=== PATIENT | male | born 1965 | race Two or more races ===

== ENCOUNTER 2023-12-25 12:26 | Emergency (ER) | payer OTHER ==
[2023-12-25 12:40] LABS: Glucose,Whole Blood 157 mg/dL (70-110)
[2023-12-25 13:03] VITALS: TEMP 97.8
--- NOTE | 2023-12-25 13:35 | ED ---
Syncope HPI - General Chief Complaint: Weakness Stated Complaint: Dizziness, anxiety Time Seen by Provider: 12/25/23 12:49 Source: patient, RN notes reviewed, old records reviewed, Caregiver Mode of arrival: ambulatory Limitations: no limitations - History of Present Illness Initial Comments: This is a 58-year-old male to the ER today. This patient presents today for evaluation of a syncopal event sent in from orthopedics, patient was at his orthopedics office where he was getting some testing today, the testing was going different his way he was told he needed surgery might need to get an IV and patient passed out in the exam room. Patient is without complaints he is no feelings of near syncope or syncope currently here in the ER. He has no travel history or sick contacts no chest pain shortness of breath abdominal pain no complaints. - Related Data Home Medications Medication Instructions Recorded Confirmed Divalproex ER [Depakote ER] 250 mg PO DAILY 04/15/17 04/15/17 Sertraline HCl [Zoloft] 50 mg PO 04/15/17 Allergies Allergy/AdvReac Type Severity Reaction Status Date / Time No Known Allergies Allergy Verified 12/25/23 12:36 Review of Systems ROS Statement: Those systems with pertinent positive or pertinent negative responses have been documented in the HPI. ROS Other: All systems not noted in ROS Statement are negative. Past Medical History Past Medical History: Diabetes Mellitus History of Any Multi-Drug Resistant Organisms: None Reported Past Surgical History: Back Surgery Additional Past Surgical History / Comment(s): neck Past Psychological History: Anxiety, Depression Smoking Status: Never smoker Past Alcohol Use History: None Reported - Past Family History Mother Family Medical History: Diabetes Mellitus General Exam Limitations: no limitations General appearance: alert, in no apparent distress Head exam: Present: atraumatic, normocephalic, normal inspection Eye exam: Present: normal appearance, PERRL, EOMI. Absent: scleral icterus, conjunctival injection, periorbital swelling ENT exam: Present: normal exam, mucous membranes moist Neck exam: Present: normal inspection. Absent: tenderness, meningismus, lymphadenopathy Respiratory exam: Present: normal lung sounds bilaterally. Absent: respiratory distress, wheezes, rales, rhonchi, stridor Cardiovascular Exam: Present: regular rate, normal rhythm, normal heart sounds. Absent: systolic murmur, diastolic murmur, rubs, gallop, clicks GI/Abdominal exam: Present: soft, normal bowel sounds. Absent: distended, tenderness, guarding, rebound, rigid Extremities exam: Present: normal inspection, full ROM, normal capillary refill. Absent: tenderness, pedal edema, joint swelling, calf tenderness Back exam: Present: normal inspection Neurological exam: Present: alert, oriented X3, CN II-XII intact Psychiatric exam: Present: normal affect, normal mood Skin exam: Present: warm, dry, intact, normal color. Absent: rash Course Vital Signs 12/25/23 12/25/23 12/25/23 12:33 12:36 13:49 Temperature 97.8 F Pulse Rate 65 85 75 Pulse Rate [ 75 Er Nurse ] Respiratory 18 16 16 Rate Blood Pressure 115/80 170/80 122/80 O2 Sat by Pulse 97 98 98 Oximetry - Reevaluation(s) Reevaluation #1: Medical record is reviewed Reevaluation #2: Patient has no recurrent syncope here in the ER feels well Patient passed out while getting IV does not want further evaluation regarding causes of syncope Reevaluation #3: Patient informed of results and questions answered Reevaluation #4: Was pt. sent in by a medical professional or institution (, PA, PARATRANSIT DRIVER, urgent care, hospital, or fpc...) When possible be specific @ -no Did you speak to anyone other than the patient for history (EMS, parent, family, police, friend...)? What history was obtained from this source @ -no Did you review nursing and triage notes (agree or disagree)? Why? @ -agree Are old charts reviewed (outside hosp., previous admission, EMS record, old EKG, old radiological studies, urgent care reports/EKG's, fpc records)? Report findings @ -yes Differential Diagnosis (chest pain, altered mental status, abdominal pain women, abdominal pain men, vaginal bleeding, weakness, fever, dyspnea, syncope, head ache, dizziness, GI bleed, back pain, seizure, CVA, palpatations, mental health, musculoskeletal)? @ -prior EKG interpreted by me (3pts min.). @ -yes X-rays interpreted by me (1pt min.). @ -yes negative for acute disease CT interpreted by me (1pt min.). @ -no U/S interpreted by me (1pt. min.). @ -no What testing was considered but not performed or refused? (CT, X-rays, U/S, labs)? Why? @ -none What meds were considered but not given or refused? Why? @ -none Did you discuss the management of the patient with other professionals (professionals i.e. , PA, PARATRANSIT DRIVER, lab, RT, psych nurse, high school social studies teacher, founder ceo & president, teacher, deputy juvenile officer, case assistant)? Give summary @ -no Was smoking cessation discussed for >3mins.? @ -no Was critical care preformed (if so, how long)? @ -no Were there social determinants of health that impacted care today? How? (Homelessness, low income, unemployed, alcoholism, drug addiction, transportation, low edu. Level, literacy, decrease access to med. care, custodial, rehab)? @ -none Was there de-escalation of care discussed even if they declined (Discuss DNR or withdrawal of care, Hospice)? DNR status @ -no What co-morbidities impacted this encounter? (DM, HTN, Smoking, COPD, CAD, Cancer, CVA, ARF, Chemo, Hep., AIDS, mental health diagnosis, sleep apnea, morbid obesity)? @ -none Was patient admitted / discharged? Hospital course, mention meds given and [place], prescriptions, significant lab abnormalities, going to OR and other pertinent info. @ - 58 male who did present with a syncopal event. No cause of syncope found here in the ER patient feels good for discharge home Undiagnosed new problem with uncertain prognosis? @ -no Drug Therapy requiring intensive monitoring for toxicity (Heparin, Nitro, Insulin, Cardizem)? @ -no Were any procedures done? @ -no Diagnosis/symptom? @ -Syncope Acute, or Chronic, or Acute on Chronic? @ -Acute Uncomplicated (without systemic symptoms) or Complicated (systemic symptoms)? @ -Complicated Side effects of treatment? @ -no Exacerbation, Progression, or Severe Exacerbation? @ -exacerbation Poses a threat to life or bodily function? How? (Chest pain, [place], CA, pneumonia, PE, COPD, DKA, ARF, appy, cholecystitis, CVA, Diverticulitis, Homicidal, Suicidal, threat to staff... and all critical care pts) @ -yes Reevaluation #5: Differential Syncope: Valvular disease, hypertrophic cardiomyopathy, pulmonary embolism, tamponade, tachycardia, bradycardia, CA, hypovolemia, hemorrhage, dissection, anemia, intracranial hemorrhage, seizure, hypoglycemia, carbon monoxide poisoning, this is not meant to be an all-inclusive list. Medical Decision Making - Medical Decision Making 58 male who did present with a syncopal event. No cause of syncope found here in the ER patient feels good for discharge home - Lab Data Lab Results 12/25/23 Range/Units 12:38 POC Glucose (mg/dL) 157 H (70-110) mg/dL POC Glu Doughnut Batter Mixer ID EmeliaBernadette tapia Disposition Clinical Impression: Dehydration, Vasovagal syncope Disposition: HOME SELF-CARE Condition: Good Instructions (If sedation given, give patient instructions): Syncope (ED) Is patient prescribed a controlled substance at d/c from ED?: No Referrals: Renaldo Smith, BATSHEVA [Primary Care Provider] - 1-2 days Time of Disposition: 13:15
[2023-12-25 14:05] VITALS: BP 122/80; PULSE 75; RESP 16
== END 2023-12-25 13:51 | disposition home or self-care (01) ==
LOC: EC 12:26
DX: E86.0 Dehydration (principal); R55 Syncope and collapse; E11.9 Type 2 diabetes mellitus without complications; F32.A Depression, unspecified; F41.9 Anxiety disorder, unspecified; Z79.899 Other long term (current) drug therapy
CPT/HCPCS: 36415; 99285

== ENCOUNTER → 2024-02-18 | Outpatient (CLI) | payer OTHER | END | disposition home or self-care (01) | LOC: LABPAT 10:59 | PROVIDERS: ATTEND Orthopaedic Surgery | DX: Z01.812 Encounter for preprocedural laboratory examination (principal); Z22.322 Carrier or suspected carrier of Methicillin resistant Staphylococcus aureus; M50.20 Other cervical disc displacement, unspecified cervical region; M48.02 Spinal stenosis, cervical region | CPT/HCPCS: 36415; 86850; 86900; 86901; 87070 ==

== ENCOUNTER 2024-02-23 05:37 | Day surgery (SDC) | payer OTHER ==
--- NOTE | 2024-02-22 08:10 | P.HPOR ---
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 I reviewed the patient's clinical syndrome, physical findings, and imaging studies during the appointment today. It is my impression that the patient has a diagnosis of. 1. C3-5 spondylosis wit stenosis 2. C3-4, C4-5 herniated nucleus pulposus 3. Right upper extremity radiculopathy 4. Lumbar spondylosis with stenosis 5. Bilateral lower extremity radiculopathy Spine Surgery Risk Review Mr. Goss is presenting for evaluation of neck and right upper extremity pain, right upper extremity numbness and tingling. It was my pleasure to have seen and examined Mr. Goss. In our visit today we have had a chance to go over subjective complaints, physical examination findings and treatments including the natural course history without intervention and various interventional options. The [facility]: - Images re-reviewed in office today. Impression: 1. Nonspecific straightening normal cervical lordosis consistent with strain in the appropriate clinical circumstance. 2. C2-C3: 1 to 2 mm annular bulge effaces the ventral surface of the thecal sac resulting in moderate bilateral neuroforaminal encroachment and bilateral exiting C3 nerve impingement in conjunction with marginal osteophyte formation. 3. C3-C4: 2 to 3 mm broad-based disc herniation effaces the ventral surface of the thecal sac resulting in severe bilateral neuroforaminal encroachment and bilateral exiting C4 nerve impingement in conjunction with marginal osteophyte formation. Moderate canal stenosis is seen. 4. C4-C5: 4 to 5 mm broad-based disc herniation effaces the ventral surface of the thecal sac resulting in severe right and moderate to severe left neuroforaminal encroachment and bilateral exiting C5 nerve impingement in conjunction with marginal osteophyte formation. Moderate canal stenosis is seen. 5. C5-C6: 2 to 3 mm broad-based disc herniation effaces the ventral surface of the thecal sac without evidence of central canal or limiting foraminal stenosis. 6. Syrinx formation without evidence of Chiari malformation. Consider MRI with intravenous contrast to exclude mass as an etiology. XRay Cervical multiview (Lateral, Flexion, Extension, AP, Oblique) [facility] 12[facility]23: - Images re-reviewed with the patient today. Cervical: Moderate to severe spondylitic and degenerative changes with straightening of the normal lordosis. Multilevel diminished disc height, most pronounced C3-C4. Mild grade 1 anterolisthesis C6 on to C7, C5 and C6. Mild grade 1 retrolisthesis C4 and C5. Vertebral body heights are preserved. No subluxation between flexion and extension films. No acute osseous abnormalities. On physical exam, Mr. Goss demonstrates: A continued ache-like pain throughout the neck that radiates down into the right upper extremity wit a sharp, shooting quality. He notes his right arm pain is associated with numbness and tingling. He states his neck and upper extremity symptoms worsen after extended use of the arms or with any quick movements of the neck. He notes that prolonged activity produces an intense, throbbing pain throughout the posterior aspect of the neck. The patient reports experiencing severe sleep disturbances r elated to his ongoing pain and associated symptoms. I have explained to the patient that as their condition progresses it will cause further neurological deficits and eventual paralysis. Based on the patients imaging, physical exam, and the rapid progression and disabling nature of their symptoms, at this time I recommend surgery in the form of a: C3-5 ANTERIOR CERVICAL DISCECOMTY AND FUSION. I discussed the risk and benefits of this procedure at length with Mr. Goss. The patient agreed to considered pursuing the procedure above mentioned. Prior to surgery, she should follow up with her PCP (Cardio, ID, IM etc) for clearance. Questions were invited and answered, and the patient wishes to proceed as outlined below. Currently, I am recommendin.C3-5 ANTERIOR CERVICAL DISCECOMTY AND FUSION 2.Review of surgical risks and benefits as well as an educational packet on the proposed surgical procedure. Risks: All surgical procedures come with inherent risks, including those related to positioning, anesthesia, intraoperative findings, and postoperative complications. It is important to understand that surgery does not come with any guarantee of a successful outcome as complications and adverse events are always possible. The patient was given a handout in office today discussing the surgical procedure and risks associated with the intervention, both of which were discussed with the patient. These risks include but are not limited to the following: * Experiencing same, different or even worse symptoms in back, neck, arms, or legs compared to before surgery. Requiring further surgery or other forms of treatment presently or at some time in the future at same or other levels of the intended spine surgery. On an extreme but fortunately relatively rare basis severe complication such as blindness, stroke, heart attack, temporary and/or permanent nerve injury, paralysis, coma, or may occur, sometimes without known explanation. Surgical complications may include but are not limited to risk of infection, fluid accumulation in the surgical dissection site, including a seroma or hematoma, that requires additional surgery, wound drainage, bleeding, new numbness or weakness, vision changes/loss, spinal fluid leakage, non-healing and/or infected incision, headaches, difficulty or inability to swallow, hoarseness, hemopneumothorax, pneumothorax, impotence, retrograde ejaculation, vaginal dryness; injury to nerves, spinal cord, blood vessels, lymphatics or other vital organs (i.e., bowel injury, injury to the great vessels); heterotopic bone formation; complications related to the hardware such as screws, rods, cages including misplaced hardware, device failure, instrumentation at the wrong spine level, hardware fracture/breakage, or hardware loosening; vertebral failure of the spinal column above or below the newly placed hardware; retained surgical instrumentations or devices and the need for further surgery. * Medical risks of the planned spine surgery include but are not limited to generalized Infections to the whole body or local areas outside of the surgical site (sepsis), heart attack, bleeding, anaphylaxis, meningitis, seizure, epilepsy, hearing loss, burn dyson, laceration of the head or other areas of the body, bruising, hypersensitivity of the skin, bladder over distension; allergic reaction; shoulder injury related to positioning; fat, blood and air clots to other areas of the body like heart, lungs, brain; failure of internal organs such as lungs, kidneys, liver and excessive bleeding. If blood transfusions are necessary, note that transfusions may cause intolerance reactions such as anaphylaxis or other complex reactions. Despite best efforts, the results of spine surgery might not heal in terms of bone, soft tissues such as skin, fascia, ligaments, and joints. Additionally, in order to achieve best possible results, spine surgery may be carried out beyond the initially planned levels and involve decompression, fusion including insertion of hardware at levels other than the original intended area of surgical interest change some portions of the procedure in order to ensure the best possible outcomes. With spine surgery and spinal fusion, there are different off label uses of instrumentation (devices, implants and hardware) as well as biological substances (bone morphogenic proteins, demineralized bone matrix) as well as using extra bone from allograft sources (i.e. cadaver bone) or autograft (iliac crest bone, ribs, or the spine itself). The patient has been given information about these practices and their inherent risks and benefits. [facility] is an educational center that serves as a training facility for neurosurgical and orthopedic [employer] and Nursing students. Physician assistants are medically trained surgical providers who function in the outpatient, inpatient, and operating room setting under the direct supervision of the attending surgeon. [facility] has multiple operating rooms with single and overlapping rooms running daily. They currently function under the required guidelines as produced by the [facility] Finance Committee with regards to the overlapping rooms and will continue to comply with changes to this policy as they occur. The requirements include and are complied with as follows: (1) the critical portions of the overlapping rooms will not occur at the same time, (2) the attending physician will be physically present during the critical portions of the procedure and immediately available during the entire case, and (3) a back-up attending is designated should the primary attending not be immediately available. The patient has had a chance to review all the listed information, has been given print outs detailing this information, and has had all his/her questions answered to their satisfaction. It was my pleasure to have seen and examined Mr. Goss. In our visit today we have had a chance to go over my understanding of our patient's current condition, the natural course history without intervention and various interventional options. Questions were invited and answered, and the patient wishes to proceed as outlined above. I have seen and examined the patient for 25 minutes and we have spent more than 50% of the time in repeat and detailed counseling about the patient's condition, its natural course history with out and as much as can be predicted with surgery and re-review of various surgical treatment options. In conclusion, Mr. Goss requested we proceed with the above suggested surgery and are willing to accept risks and limitations of the suggested surgery as nature of the disease process and our best attempts at treatment for the condition. Thank you again for allowing us to be part of your patient's care. Please don't hesitate to contact me if you have any further questions. FOLLOW UP: Post Procedure PATIENT EDUCATION: Medications Reviewed: YES In our visit today Mr. Goss and I have had a chance to go over my understanding of the patient's current condition, the natural course history without intervention and various interventional options. Questions were invited and answered, and the patient wishes to proceed as outlined above. I will be sure to keep you updated after Mr. Goss returns here for further follow-up. Thank you again for your referral. Please do not hesitate to contact me if you have any further questions. Signed and authenticated by: Chaz Avila [facility] [address] [place] [id number] This message is confidential, intended only for the named recipient(s) and may contain information that is privileged or exempt from disclosure under ap plicable law. If you are not the intended recipient(s), you are notified that the dissemination, distribution or copying of this information is strictly prohibited. If you received this message in error, please notify the sender then delete this message. 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, chronic low back pain History of Any Multi-Drug Resistant Organisms: None Reported Past Surgical History: Back Surgery, Tonsillectomy Additional Past Surgical History / Comment(s): laminectomy/discectomy lumbar, epidural pain procedures Past Anesthesia/Blood Transfusion Reactions: No Reported Reaction Smoking Status: Never smoker - Past Family History Mother Family Medical History: Diabetes Mellitus Medications and Allergies Home Medications Medication Instructions Recorded Confirmed Type Sertraline HCl [Zoloft] 25 mg PO DAILY 04/15/17 02/19/24 History Alogliptin Benzoate [Alogliptin] 25 mg PO DAILY 02/19/24 02/19/24 History Aspirin 81 mg PO DAILY 02/19/24 02/19/24 History Cyclobenzaprine [Flexeril] 10 mg PO BID PRN 02/19/24 02/19/24 History Diclofenac Sodium Gel [Voltaren 1% 2 gm TOPICAL BID PRN 02/19/24 02/19/24 History Gel] Empagliflozin [Jardiance] 25 mg PO DAILY 02/19/24 02/19/24 History Gabapentin [Neurontin] 100 mg PO TID 02/19/24 02/19/24 History Tamsulosin HCl [Flomax] 0.4 mg PO DAILY 02/19/24 02/19/24 History glipiZIDE [Glucotrol] 10 mg PO AC-BID 02/19/24 02/19/24 History lisinopriL [Zestril] 10 mg PO DAILY 02/19/24 02/19/24 History Allergies Allergy/AdvReac Type Severity Reaction Status Date / Time No Known Allergies Allergy Verified 02/18/24 15:43 Physical Examination Osteopathic Statement: *. No significant issues noted on an osteopathic structural exam other than those noted in the History and Physical/Consult.
[~2024-02-23 05:37] MED LIST: GABAPENTIN 300 MG CAP PO PRN; TRANEXAMIC 1,000 MG/100ML-NACL 1,000 MG in SALINE 1 100ML.BAG IVPB PRN
[2024-02-23] MEDS: ACETAMINOPHEN TAB 500 MG TAB PO PRN (06:52)
[2024-02-23] MEDS: LACTATED RINGERS 1,000 ML IV SCH (06:56)
[2024-02-23] MEDS: ONDANSETRON 4 MG/2 ML VIAL IVP PRN (06:58)
[2024-02-23] MEDS ORDERED: MIDAZOLAM 2 MG/2 ML VIAL IV PRN (07:00)
[2024-02-23 07:06] LABS: Glucose,Whole Blood 138 mg/dL (70-110)
[2024-02-23] MEDS ORDERED: LIDOCAINE 1% INJ 10MG/ML (20 ML MDV) ONE (07:25)
[2024-02-23] MEDS ORDERED: KETAMINE HCL IN 0.9 % NACL 50 MG/5 ML SYRINGE ONE (07:25)
[2024-02-23] MEDS ORDERED: fentaNYL (PF) 50 MCG/ML 2 ML AMP ONE (07:25)
[2024-02-23] MEDS ORDERED: ePHEDrine 50 MG/ML 1 ML VIAL ONE (07:25)
[2024-02-23] MEDS ORDERED: ROCURONIUM 10 MG/ML (5 ML VIAL) IV ONE (07:25)
[2024-02-23] MEDS ORDERED: GLYCOPYRROLATE 0.2 MG/ML 2 ML VIAL ONE (07:25)
[2024-02-23] MEDS ORDERED: TRANEXAMIC 1,000 MG/100ML-NACL PREMIX BAG ONE (07:25)
[2024-02-23] MEDS ORDERED: NEOSTIGMINE 1 MG/ML 10 ML VIAL ONE (07:25)
[2024-02-23] MEDS ORDERED: MIDAZOLAM 2 MG/2 ML VIAL ONE (07:25)
[2024-02-23] MEDS ORDERED: PROPOFOL 10 MG/ML 20 ML VIAL IV ONE (07:25)
[2024-02-23] MEDS ORDERED: SUCCINYLCHOLINE CHLORIDE 200 MG/10 ML VIAL IV ONE (07:25)
[2024-02-23] MEDS: THROMBIN (BOVINE) 5,000 UNIT VIAL TOPICAL ONE (08:30)
--- NOTE | 2024-02-23 10:06 | P.OP ---
Date of Procedure: 02/23/24 Preoperative Diagnosis: 1. C3-5 SPONDYLOSIS, SEVERE WITH STENOSIS 2. UE RADICULOPATHY 3. UE WEAKNESS 4. NECK PAIN Postoperative Diagnosis: 1. C3-5 SPONDYLOSIS, SEVERE WITH STENOSIS 2. UE RADICULOPATHY 3. UE WEAKNESS 4. NECK PAIN Procedure(s) Performed: 1. C3-4 ANTERIOR CERVICAL ARTHRODESIS 2. C4-5 ANTERIOR CERVICAL ARTHRODESIS 3. C3-5 ANTERIOR INSTRUMENTATION 4. C3-4 AND C4-5 INSERTION BIOMECHANICAL DEVICE x2 IONM USE OF IO MICROSCOPE Implants: 4 LANG 8MM 7 DEG 9MM 7 DEG MAGNATOS, AUTOGRAFT Anesthesia: GETA Surgeon: Chaz Hayes Therapist Radiation #1: Rm Whalen (WAS PRESENT AND ASSISTED WITH ALL ASPECTS OF THE CASE FROM POSITION TO CLOSURE) Estimated Blood Loss (ml): 25 IV fluids (ml): 1,000 Urine output (ml): 0 Pathology: none sent Condition: stable Disposition: PACU Indications for Procedure: Mr. Goss is presenting for evaluation of neck and right upper extremity pain, right upper extremity numbness and tingling. It was my pleasure to have seen and examined Mr. Goss. In our visit today we have had a chance to go over subjective complaints, physical examination findings and treatments including the natural course history without intervention and various interventional options. The patients imaging demonstrates[facility]: - Images re-reviewed in office today. Impression: 1. Nonspecific straightening normal cervical lordosis consistent with strain in the appropriate clinical circumstance. 2. C2-C3: 1 to 2 mm annular bulge effaces the ventral surface of the thecal sac resulting in moderate bilateral neuroforaminal encroachment and bilateral exiting C3 nerve impingement in conjunction with marginal osteophyte formation. 3. C3-C4: 2 to 3 mm broad-based disc herniation effaces the ventral surface of the thecal sac resulting in severe bilateral neuroforaminal encroachment and bilateral exiting C4 nerve impingement in conjunction with marginal osteophyte formation. Moderate canal stenosis is seen. 4. C4-C5: 4 to 5 mm broad-based disc herniation effaces the ventral surface of the thecal sac resulting in severe right and moderate to severe left neuroforaminal encroachment and bilateral exiting C5 nerve impingement in conjunction with marginal osteophyte formation. Moderate canal stenosis is seen. 5. C5-C6: 2 to 3 mm broad-based disc herniation effaces the ventral surface of the thecal sac without evidence of central canal or limiting foraminal stenosis. 6. Syrinx formation without evidence of Chiari malformation. Consider MRI with intravenous contrast to exclude mass as an etiology. XRay Cervical multiview (Lateral, Flexion, Extension, AP, Oblique) 6 [facility]aken at [facility] on 12/25/23: - Images re-reviewed with the patient today. Cervical: Moderate to severe spondylitic and degenerative changes with straightening of the normal lordosis. Multilevel diminished disc height, most pronounced C3-C4. Mild grade 1 anterolisthesis C6 on to C7, C5 and C6. Mild grade 1 retrolisthesis C4 and C5. Vertebral body heights are preserved. No subluxation between flexion and extension films. No acute osseous abnormalities. On physical exam, Mr. Goss demonstrates: A continued ache-like pain throughout the neck that radiates down into the right upper extremity wit a sharp, shooting quality. He notes his right arm pain is associated with numbness and tingling. He states his neck and upper extremity symptoms worsen after extended use of the arms or with any quick movements of the neck. He notes that prolonged activity produces an intense, throbbing pain throughout the posterior aspect of the neck. The patient reports experiencing severe sleep disturbances related to his ongoing pain and associated symptoms. I have explained to the patient that as their condition progresses it will cause further neurological deficits and eventual paralysis. Based on the patients imaging, physical exam, and the rapid progression and disabling nature of their symptoms, at this time I recommend surgery in the form of a: C3-5 ANTERIOR CERVICAL DISCECOMTY AND FUSION. I discussed the risk and benefits of this procedure at length with Mr. Goss. The patient agreed to considered pursuing the procedure above mentioned. Prior to surgery, she should follow up with her PCP (Cardio, ID, IM etc) for clearance. Questions were invited and answered, and the patient wishes to proceed as outlined below. Currently, I am recommendin.C3-5 ANTERIOR CERVICAL DISCECOMTY AND FUSION Description of Procedure: C3-5 ACDF The patient was seen and examined in the preoperative area. All preoperative protocols were followed. Informed consent was obtained risks and benefits of the procedure were discussed at length. Risks including bleeding infection damage to the surrounding tissue and risk of reoperation were discussed with the patient. Risk of anesthesia up to and including was a discussed with the patient. These are outlined in the risk review. They were willing to accept these risks and all the risks of surgery. The patient was given a weight-based dose of antibiotics in the form of 2 g Ancef. The patient was seen and evaluated by the anesthesia team who deemed them fit for surgery. The site was marked, the patient was willing to proceed with the procedure. The patient was transferred to the operative suite by the Department of anesthesia. They were then drifted off to sleep by the department anesthesia and GETA was performed. The patient tolerated this well. Angel catheter was placed by nursing staff, a-traumatically. Once confirmation of lines and ventilation the patient was transferred to a Supine Power table very carefully. All bony prominences including wrists, elbows, axilla, chest, hips, and thighs, and feet were padded very well. Special attention was paid to the genitalia, and these were padded accordingly. SCDs were placed on bilateral lower extremities and were connected. Arms were well padded and placed at their side thumbs up. Once in position, again we confirmed good ventilation capabilities and that lines were running appropriately. The patients Cervical spine was then exposed. 1010s were placed outlining the incision site. Standard alcohol was used to clean the incision site and allowed to dry. C-arm was used to bio-mariya the patient and confirm level for incision which was marked with a skin marker. Operative briefing was performed with all teams and everyone in agreement to proceed. The patient was then prepped and draped in a normal sterile fashion. Timeout was then performed, and all parties agreed with the procedure to be performed. Transverse skin incision was then made on the right side of the patients neck 3 cm and dissection taken down to the platysma which was split transversely. Sub platysma flap was made, and interval identified between SCM and medial structures. Omohyoid was visualized and protected. Blunt dissection taken down to the anterior cervical facia which was identified. Blunt prob was then placed and lateral image taken which confirmed levels for operation. These levels were then marked with a bovi. Subperiosteal dissection of the longissimus muscles were then done over these levels identifying uncovertebral joints bilaterally. Retractor was then placed deep to these muscles and held in place with a bed arm. Radisson pins were placed into C3 and C4 and gentle distraction taken out over the levels. Jenniffer rongure used to remove disc material. Operating microscope brought in for visualization. Complete discectomy performed at this level with curette, rongure and pituitary. High speed radha used to remove osteophytes anteriorly and posteriorly until PLL was identified. There were large osteophytes posteriorly which were removed and released extensively. 6-0 up curette then used to identify the canal and resect the PLL. 2-0 and 3-0 Kerrison used then to remove PLL and disc herniation and performed b/l foraminotomies. Once good decompression accomplished, meticulous hemostasis was performed. Sizers were then placed under lateral fluoroscopy until the desired height and lordosis. Cage was then selected, packed with autograft and allograft and placed under lateral imaging. Once in good position it was tested and stable. Motors run before and after cage placement were stable. The wound was irrigated, and autograft placed lateral to the cage anteriorly for fusion. Radisson pin was then removed from C3 and placed into C5 and bone wax placed in their void. Gentle distraction taken out over C4-5 now. Complete discectomy done at C4-5 as described including decompression, b/l foraminotomies and PLL resection. Burring of endplates was minimal, osteophytes removed as described. Spacers were then sized and placed under lateral imaging. Cage selected, packed with graft and placed under lateral images. Once in position, meticulous hemostasis performed, and motors remained stable before and after cage placement. AP image confirmed good placement of cages. Wound was irrigated. We then proceeded with anterior instrumentation and screw placement. Awl and drill were done under lateral imaging of C3, 4 and 5 and screws measured and placed with good purchase. All locking mechanisms set, and all screws had good purchase. Final AP and lateral images taken confirmed good placement of hardware and good reduction and mormonism of height. The wound was then irrigated copiously with NSS. Surgicel placed deep in the wound. A deep drain placed out a separate incision and sewed into place. Layered closure then performed with 3-0 Vicryl in the platysma and sub-Q tissue. 2-0 Nylon placed in the skin The wound was then cleaned, and dried and skin glue placed. Once glue dried an Opifoam was placed. The patient was then transferred back to their hospital bed a-traumatically. The drain continued to hold suction. They were placed in a soft collar. They were then awakened by the department of anesthesia having tolerated the proce dure well without complications.
[2024-02-23] MEDS ORDERED: SENNOSIDES-DOCUSATE SODIUM 1 EACH TAB PO PRN (10:16)
[2024-02-23] MEDS ORDERED: HYDROmorphone 1 MG/ML 1 ML SYRINGE IVP PRN (10:16)
[2024-02-23] MEDS ORDERED: HYDROcodone/APAP 5-325MG 1 EACH TAB PO PRN (10:16)
[2024-02-23] MEDS ORDERED: MAGNESIUM HYDROXIDE 2,400 MG/30 ML CUP PO PRN (10:16)
[2024-02-23] MEDS ORDERED: HYDROmorphone 0.5 MG/0.5 ML SYRINGE IVP PRN (10:16)
[2024-02-23] MEDS ORDERED: CYCLOBENZAPRINE 10 MG TAB PO PRN (10:16)
[2024-02-23] MEDS: HYDROmorphone 0.5 MG/0.5 ML SYRINGE IVP PRN (10:25)
[2024-02-23 11:16] LABS: Glucose,Whole Blood 150 mg/dL (70-110)
--- NOTE | 2024-02-23 11:36 | FL ---
EXAMINATION TYPE: FL guidance operating room, XR cervical spine limited Intraoperative/procedural flu oroscopic services were provided. Total fluoroscopy time is 27 seconds with a total of 4 submitted im ages to PACS. Please see the operative/procedural note for further details. DAP: 1.0011 Gycm2
[2024-02-23] MEDS: ACETAMINOPHEN TAB 325 MG TAB PO SCH (12:18)
[2024-02-23] MEDS: HYDROcodone/APAP 10-325MG 1 EACH TAB PO PRN (13:01)
[2024-02-23] MEDS: GABAPENTIN 300 MG CAP PO SCH (15:16)
[2024-02-23 16:51] LABS: Glucose,Whole Blood 138 mg/dL (70-110)
[2024-02-23] MEDS ORDERED: DEXTROSE 50% SYRINGE 50 ML IVP PRN ×2 (17:02)
[2024-02-23] MEDS: INSULIN ASPART (NovoLOG) 100 UNIT/ML VIAL SQ SCH (17:06)
--- NOTE | 2024-02-23 17:41 | P.CONS ---
History of Present Illness - Reason for Consult Consult date: 02/23/24 Requesting physician: Chaz Hayes - Chief Complaint Medical Management - History of Present Illness History of Presenting Illness: Patient is a very pleasant 58-year-old male with a past medical history of hypertension, hyperlipidemia, BPH, diabetes mellitus, cervical spondylosis with upper extremity radiculopathy, bilateral lower extremity neuropathy, and chronic back pain. He is currently admitted under orthospine surgery team status post c ervical arthrodesis with insertion of biomechanical cage. We were consulted for medical management throughout hospitalization. Patient seen and fully evaluated at bedside. Patient reports having a difficult time urinating stating only able to dribble at this time also reporting pain to right lateral tongue and has small wound in which he reports biting his tongue while under anesthesia. No active bleeding or swelling noted. Hard c-collar in place with postoperative dressing and FAWAD drain. Patient reports controlled postoperative pain at this time. Denies any difficulty swallowing or expe riencing any postoperative nausea or vomiting. Patient denies having any other complaints at this time. Review of systems: Pertinent positives and negatives as discussed in HPI, a complete review of systems was performed and all other systems are negative. Physical exam: Vital signs reviewed and stable. General: Nontoxic, no distress and appears stated age. Derm: Skin warm and dry, normal coloration for ethnicity. Head: Atraumatic, normocephalic and symmetric. Hard c-collar, postsurgical dressing, and FAWAD drain in place. Eyes: EOMs intact, no lid lag, and anicteric sclera Mouth: no lip lesions, mucus membranes moist. Patient has small sore on right lateral tongue stating he bit his tongue while under anesthesia. Cardiovascular: regular rate and rhythm with normal S1S2, no murmur, positive posterior tibial pulses bilaterally, and cap refill < 2 seconds. Lungs: Respirations even, regular, and unlabored on room air. Lungs CTA bilaterally, no rhonchi, no rales, no wheezing, and no accessory muscle usage. Abdominal: soft, nontender to palpation, no guarding, no appreciable o rganomegaly Ext: ROM intact. No gross muscle atrophy, no edema, no contractures Neuro: Speech clear, face symmetrical and CN II-XII grossly intact with no noted focal neuro deficits Psych: Alert and oriented to person, place, time, and situation. Appropriate and pleasant affect. Assessment and Plan of Care: Postoperative urinary retention -Patient having difficult time urinating. -Order placed for bladder management and bladder scans to monitor for urinary retention and postvoid residual. -Resume Flomax 0.4 mg daily. Status post cervical arthrodesis with biomechanical cage placement -Management per primary admitting orthospine surgery team including DVT prophylaxis, wound/dressing/drain management, pain management, and PT/OT. -DVT prophylaxis currently with NIKOS tellez and SCDs. Hypertension -Continue daily medication regimen with lisinopril 10 mg daily. Diabetes mellitus -Hold glipizide, Jardiance, and alogliptin and placed patient on glycemic protocol with NovoLog sliding scale. Data reviewed: -Vital signs reviewed. Blood pressure 149/84, heart rate 91, respiratory rate 16, temp 97.9 F, and SpO2 of 98% on 2 L. Thank you for allowing us to participate in the care of this pleasant patient. Do not hesitate to contact us with questions. Someone can be reached from the [facility] group all hours of the day at [phone] or via [employer]. Patient was seen independently by Nurse Practitioner. This document was prepared using Sococ[employer] dictation software. Please allow for errors in beverage inspection machine tender while rare they do occur. Clarence Ferraro NP rendered care for this patient independently, reviewed the findings and plan as documented in the note above. I did not physically speak with or examine the patient on this date. Past Medical History Past Medical History: Diabetes Mellitus, Hypertension, Musculoskeletal Disorder, Osteoarthritis (OA), Sleep Apnea/CPAP/BIPAP Additional Past Medical History / Comment(s): CPAP machine recalled, doesn't have another machine yet, neuropathy feet, CTS in both hands, chronic low back pain History of Any Multi-Drug Resistant Organisms: None Reported Past Surgical History: Back Surgery, Tonsillectomy Additional Past Surgical History / Comment(s): laminectomy/discectomy lumbar, epidural pain procedures, cervical fusion 02/23/24 Past Anesthesia/Blood Transfusion Reactions: No Reported Reaction Past Psychological History: Anxiety, Depression Additional Psychological History / Comment(s): very anxious about this surgery Smoking Status: Never smoker Past Alcohol Use History: None Reported Past Drug Use History: None Reported - Past Family History Mother Family Medical History: Diabetes Mellitus Medications and Allergies Home Medications Medication Instructions Recorded Confirmed Type Sertraline HCl [Zoloft] 25 mg PO DAILY 04/15/17 02/23/24 History Alogliptin Benzoate [Alogliptin] 25 mg PO DAILY 02/19/24 02/23/24 History Aspirin 81 mg PO DAILY 02/19/24 02/23/24 History Cyclobenzaprine [Flexeril] 10 mg PO BID PRN 02/19/24 02/23/24 History Diclofenac Sodium Gel [Voltaren 1% 2 gm TOPICAL BID PRN 02/19/24 02/23/24 History Gel] Empagliflozin [Jardiance] 25 mg PO DAILY 02/19/24 02/23/24 History Gabapentin [Neurontin] 100 mg PO TID 02/19/24 02/23/24 History Tamsulosin HCl [Flomax] 0.4 mg PO DAILY 02/19/24 02/23/24 History glipiZIDE [Glucotrol] 10 mg PO AC-BID 02/19/24 02/23/24 History lisinopriL [Zestril] 10 mg PO DAILY 02/19/24 02/23/24 History Cyclobenzaprine [Flexeril] 10 mg PO BID PRN #40 tab 02/24/24 Rx HYDROcodone/APAP 10-325MG [[place] 1 tab PO Q4-6H PRN #42 tab 02/24/24 Rx 10-325] Sennosides/Docusate Sodium [Senna 1 each PO DAILY PRN #20 capsule 02/24/24 Rx Plus 8.6-50 mg Softgel] cefaDROXiL [Duricef] 500 mg PO Q12HR #10 cap 02/24/24 Rx Allergies Allergy/AdvReac Type Severity Reaction Status Date / Time No Known Allergies Allergy Verified 02/23/24 06:26 Physical Exam Osteopathic Statement: *. No significant issues noted on an osteopathic structural exam other than those noted in the History and Physical/Consult. Vitals: Vital Signs Temp Pulse Pulse Resp BP Pulse Ox 02/23/24 13:30 91 16 149/84 98 02/23/24 13:15 83 16 158/96 98 02/23/24 13:00 82 16 141/87 98 02/23/24 12:43 97.9 F 80 16 141/87 98 02/23/24 12:15 79 16 148/76 99 02/23/24 12:00 86 16 150/86 99 02/23/24 11:30 61 16 154/73 97 02/23/24 11:15 61 16 151/78 98 02/23/24 11:00 64 16 154/86 99 02/23/24 10:45 67 16 150/81 99 02/23/24 10:30 66 14 153/83 100 02/23/24 10:15 68 16 134/79 100 02/23/24 10:08 97.0 F L 71 16 143/74 99 02/23/24 06:38 98.2 F 82 18 145/81 97 Intake and Output 02/23/24 02/23/24 02/23/24 06:59 14:59 22:59 Intake Total 200 1600 Output Total 25 10 Balance 200 1575 -10 Intake: IV 200 1600 Output: Drainage 10 Right Neck 10 Estimated Blood Loss 25 Other: Weight 105 kg 105 kg Results CBC & Chem 7: 02/24/24 06:33 02/24/24 06:33 Labs: Abnormal Lab Results - Last 24 Hours (Table) 02/23/24 02/23/24 02/23/24 Range/Units 06:52 11:14 16:50 POC Glucose (mg/dL) 138 H 150 H 138 H (70-110) mg/dL
--- NOTE | 2024-02-23 18:00 | CT ---
EXAMINATION TYPE: CT cervical spine wo con CT DLP: 701.4 mGycm, Automated exposure control for dose reduction was used. DATE OF EXAM: 02/23/2024 5:48 PM COMPARISON: 02/23/2024 12/25/2023 09/08/2023. CLINICAL INDICATION:Male, 58 years old with history of s/p C3-C5 ACDF; PHH, post op cspine TECHNIQUE: Axial CT images from the skull base to the inferior aspect of T2 we obtained without intra venous contrast. Coronal and sagittal reformatted images were also reviewed. Contrast used: mL of , (if blank None) Oral contrast used: (if blank None) FINDINGS: Fracture: None. Osseous structures: Status post anterior fixation at C3-C4 and C4-C5. Hardware appears intact. Postsu rgical lucencies in the surgical bed aren't present. No evidence for acute fracture. Multilevel degen eration changes throughout the remainder the spine with facet and uncovertebral joint arthropathy and osteophyte formation. Vertebral alignment: Alignment within normal limits. Spinal canal/Neural Foramina: No evidence of significant spinal canal narrowing. No evidence for sign ificant neural foraminal stenosis. Neck soft tissues: Prevertebral soft tissues are within normal limits. Lucencies in the surgical bed with drainage catheter in appropriate position. Other: The airway is patent. The lung apices are clear. IMPRESSION: Post surgical changes to C3-C4 and C4-C5 without evidence for immediate postop complication.
[2024-02-23 20:36] LABS: Glucose,Whole Blood 153 mg/dL (70-110)
[2024-02-23] MEDS: BENZOCAINE 20 % GEL 11.9 GM TUBE MM PRN (21:07)
[2024-02-23] MEDS: SENNOSIDES-DOCUSATE SODIUM 1 EACH TAB PO SCH (21:07)
[2024-02-24 05:47] LABS: Glucose,Whole Blood 157 mg/dL (70-110)
--- NOTE | 2024-02-24 07:17 | P.PN ---
Subjective Progress Note Date: 02/24/24 Principal diagnosis: 1. C3-5 spondylosis wit stenosis 2. C3-4, C4-5 herniated nucleus pulposus 3. Right upper extremity radiculopathy 4. Lumbar spondylosis with stenosis 5. Bilateral lower extremity radiculopathy Patient seen and examined this morning. Patient was resting currently in bed. He states his pain has been managed on current regimen. Surgical incision to the anterior cervical spine, edges are well approximated with glue intact. FAWAD drain is present with minimal output. Drain has been removed and new surgical dressing applied. Patient reports improvement in his radiculopathy to the bilateral upper extremities. Patient does report that he had bitten his right lateral portion of his tongue during the procedure. Patient states that he is able to tolerate diet and intake of liquids. He has been ambulatory within the room, tolerating activity well. Patient reports that he feels safe being discharged home today. No acute concerns at this time. Objective - Vital Signs Vital signs: Vital Signs Temp 98.2 F 02/24/24 02:00 Pulse 98 02/24/24 02:00 Resp 16 02/24/24 02:00 BP 130/72 02/24/24 02:00 Pulse Ox 98 02/24/24 02:00 FiO2 Intake & Output 02/23/24 02/24/24 02/24/24 18:59 06:59 18:59 Intake Total 1600 Output Total 35 Balance 1565 Weight 105 kg Intake: IV 1600 Output: Drainage 10 Right Neck 10 Estimated Blood Loss 25 Other: Voiding Method Toilet # Voids 2 1 - Exam Physical Examination General: The patient is awake and alert, in no acute distress Skin: Skin is warm and dry with no obvious rashes or lesions. Surgical incision to the anterior cervical spine, edges are well approximated with glue intact. FAWAD drain has been removed, new dressing has been applied. Wound and edema present to the right lateral tongue. Eye: Pupils are equal, round and reactive to light, extra-ocular movements are intact; there is normal conjunctiva bilaterally. Neck: The neck is supple, there is Mild tenderness and limited range of motion due to surgical procedure and [place] hard collar intact. Cardiovascular: There is a regular rate and rhythm. No murmur, rub or gallop is appreciated. Respiratory: Lungs are clear to auscultation, respirations are non-labored, breath sounds are equal. Gastrointestinal: Soft, non-distended, non-tender abdomen. Back: There is no tenderness to palpation in the midline, paralumbar, parathoracic or buttocks region. There is no obvious deformity . Musculoskeletal: ROM limited secondary to pain and stiffness from surgical procedure. Muscle strength in all major muscle groups of bilateral upper extremities 4/5, bilateral lower extremities 5/5. Neurological: CN 2-12 intact. There are no obvious motor or sensory deficits. Movement and coordination equal and intact. Sensory exam to light touch intact C5-T1 and intact from L2-S1. Reflexes 2/4 in bilateral upper and lower extremities. Negative Hoffmans, babinski, and clonus signs. Psychiatric: Cooperative, appropriate mood & affect, normal judgment. - Labs Labs: Abnormal Lab Results - Last 24 Hours (Table) 02/23/24 02/23/24 02/23/24 Range/Units 11:14 16:50 20:35 POC Glucose (mg/dL) 150 H 138 H 153 H (70-110) mg/dL 02/24/24 Range/Units 05:46 POC Glucose (mg/dL) 157 H (70-110) mg/dL Assessment and Plan Assessment: Post-Op Day 1: C3-C5 ACDF 1. C3-5 spondylosis wit stenosis 2. C3-4, C4-5 herniated nucleus pulposus 3. Right upper extremity radiculopathy 4. Lumbar spondylosis with stenosis 5. Bilateral lower extremity radiculopathy Plan: -Appreciate center lead consultant and team management. -Activity: Ambulate QID, OOB all meals, up and about, limit lifting bending twisting to less than 5 lbs. Use walker or cane if needed for stability. -Daily PT/OT, increase ambulation strength and balance. -[place] hard collar when up and about, not needed in bed or chair, Patient may remove for showers. -Pain control: Adequate at this time -Meds: reviewed -GI ppx: senna, Miralax -DVT PPX: OK to restart Heparin tonight -Flomax will be prescribed for 2 weeks. -Hygiene: Shower today. Maintain dressing clean and dry. -Encourage IS 10x/hr -Dispo: Anticipate discharge home today with homecare *I reviewed and discussed this case with my attending Dr. Hayes, whom has reviewed this chart and films and is in agreement with assessment and plan of care as outlined above. I have personally seen and examined the patient, performed the documentation and the assessment and plan as written. Number of minutes spent on the visit: 20m.
--- NOTE | 2024-02-24 07:25 | P.DS ---
Providers Date of admission: 02/23/2024 Expected date of discharge: 02/24/24 Attending physician: Chaz Hayes DO Consults: 02/23/24 10:16 Consult Physician Routine Consulting Provider: Urban Horta Consult Reason/Comments: medical management s/p C3-C5 ACDF Do you want consulting provider notified?: Yes Primary care physician: [facility] Hospital Course: Hospital Course: The patient was evaluated preoperatively and found to have the diagnosis of Cervical spondylosis They underwent appropriate preoperative care and were willing to undergo the intended procedure. They underwent a successful C3-C5 ACDF were recovered appropriately and sent to the floor. While on the floor they worked with physical therapy, occupational therapy and nursing to enhance their recovery experience. Their pain was well controlled through their stay and they were started on appropriate medications, DVT ppx modalities, activity and dietar y needs. Daily labs were monitored closely, and transfusions were only used when necessary. Medicine as well as other consulting services have made their input and have helped with our team approach and multidisciplinary care. PT milestones have been met and passed and they have made the recommendation of Home for this patient and treating providers agree with this care path. The patient will be d ischarged home with appropriate medications, instructions and follow-up information and in stable condition. Patient Condition at Discharge: Good Plan - Discharge Summary Discharge Rx Participant: Yes New Discharge Prescriptions: New Cyclobenzaprine [Flexeril] 10 mg PO BID PRN #40 tab PRN Reason: Muscle Spasm cefaDROXiL [Duricef] 500 mg PO Q12HR #10 cap HYDROcodone/APAP 10-325MG [Gaines 10-325] 1 tab PO Q4-6H PRN #42 tab PRN Reason: Pain Sennosides/Docusate Sodium [Senna Plus 8.6-50 mg Softgel] 1 each PO DAILY PRN #20 capsule PRN Reason: Constipation No Action Sertraline HCl [Zoloft] 25 mg PO DAILY Gabapentin [Neurontin] 100 mg PO TID Diclofenac Sodium Gel [Voltaren 1% Gel] 2 gm TOPICAL BID PRN PRN Reason: Pain Cyclobenzaprine [Flexeril] 10 mg PO BID PRN PRN Reason: Muscle Spasm Tamsulosin HCl [Flomax] 0.4 mg PO DAILY Aspirin 81 mg PO DAILY lisinopriL [Zestril] 10 mg PO DAILY glipiZIDE [Glucotrol] 10 mg PO AC-BID Empagliflozin [Jardiance] 25 mg PO DAILY Alogliptin Benzoate [Alogliptin] 25 mg PO DAILY Discharge Medication List Sertraline HCl [Zoloft] 25 mg PO DAILY 04/15/17 [History] Alogliptin Benzoate [Alogliptin] 25 mg PO DAILY 02/19/24 [History] Aspirin 81 mg PO DAILY 02/19/24 [History] Cyclobenzaprine [Flexeril] 10 mg PO BID PRN 02/19/24 [History] Diclofenac Sodium Gel [Voltaren 1% Gel] 2 gm TOPICAL BID PRN 02/19/24 [History] Empagliflozin [Jardiance] 25 mg PO DAILY 02/19/24 [History] Gabapentin [Neurontin] 100 mg PO TID 02/19/24 [History] Tamsulosin HCl [Flomax] 0.4 mg PO DAILY 02/19/24 [History] glipiZIDE [Glucotrol] 10 mg PO AC-BID 02/19/24 [History] lisinopriL [Zestril] 10 mg PO DAILY 02/19/24 [History] Cyclobenzaprine [Flexeril] 10 mg PO BID PRN #40 tab 02/24/24 [Rx] HYDROcodone/APAP 10-325MG [Gaines 10-325] 1 tab PO Q4-6H PRN #42 tab 02/24/24 [Rx] Sennosides/Docusate Sodium [Senna Plus 8.6-50 mg Softgel] 1 each PO DAILY PRN #20 capsule 02/24/24 [Rx] cefaDROXiL [Duricef] 500 mg PO Q12HR #10 cap 02/24/24 [Rx] Follow up Appointment(s)/Referral(s): Chaz Hayes DO [Doctor of Osteopathic Medicine] - 1 Week Activity/Diet/Wound Care/Special Instructions: Spine Discharge and Recovery Instructions Date of Surgery: 02/23/2024 Diagnosis: Cervical spondylosis Procedure: C3-C5 ACDF Medications: See medication list All medication refills should be obtained through your primary care doctor or your clinic spine surgeon. Please discuss prescription refills at your follow up appointment. Do not call the hospital for medication refills. Activity: Encourage ambulation with assist of walker, Up and about 6-8x daily PT/OT daily work on balance, strength and mobility Up in chair with all meals Shower daily Brace: Use brace when up and about, do not wear in bed or shower Dressing: Leave your dressing in place for a total of 3 days post operatively. Then you may remove your dressing and leave open to air. Keep the area clean and if not able to keep area clean, then cover with sterile gauze and tape. Showering: You may shower 3 days after your procedure allowing soap and water to run over incision. Do not scrub. Do not soak. Blot dry. Follow up: Please confirm a follow up appointment with your surgeon 2 weeks post operatively. Please make an appointment to follow up with your PCP in 1-2 weeks after surgery for evaluation 3 phase, 3-week plan POST OP WEEKS 1-3 1. Lifting/carrying/pushing/pulling limited to less than 5 pounds. 2. Do not sit for longer than 15 minutes at one time. Get up and walk around. Prolonged sitting is NOT advised. If you lay down, see if you can tolerate laying down on you front (belly side) 3. Walk for periods of 15 minutes = 1 mile but no longer; do it multiple times times each day. 4. Ice your low back after activity. POST OP WEEKS 3-6 1. Lifting limited to less than 20 pounds. 2. Do not sit for longer than 30 minutes at a time. Frequently change positions. Use a sit-to stand workstation or take frequent breaks from sitting if you have returned to work. 3. Walk for 30 minutes each day. If possible, do these three or more times a day POST OP WEEKS 6+ At your 6-week appointment we will give you a physical therapy referral to focus on a core stabilization and strengthening program. You should also work on leg & buttock strengthening, hamstring & quadriceps stretching, and continue a low impact aerobic activity program such as swimming, walking, or riding a stationary bicycle. During the initial 6 weeks after your surgery, you are at the highest risk of re-injuring your spine. You should generally avoid BLTs (bending, lifting and twisting combination motions) and follow the above guidelines to reduce the chance of reinjury. You can anticipate post op appointments in our office at approximately 3 weeks and 6 weeks after your surgery. INCISION CARE: If your incision is not draining you do NOT need to cover it with a dressing. Keep your incision clean, dry and intact. In most cases, we apply skin glue, remi or sutures to the incision at the time of surgery. This will be like a crust or have the appearance of a scab and will fall off in time on its own. The stitches or remi need to be removed at 3 weeks post op appointment. You may begin to shower 3 days after surgery (this allows the glue to rey well). However, please avoid scrubbing the incision site or peeling off any of the skin glue. This will ensure optimal healing of your incision. Also, during this time avoid soaking the incision area in water - this includes swimming pools, hot tubs or baths. No ointments, lotions or oils on the incision until your surgeon allows. Leave remi, sutures or glue in place. Neurological dysfunction that comes on suddenly can also be a sign of a stroke. Below some common symptoms of a stroke are listed: B - balance difficulty such as sudden onset walking or leaning to one side - NEW E - eye problem such as sudden double vision or trouble seeing on one side - NEW F - Facial weakness or numbness on one side - NEW A - Arm or leg weakness or numbness on one side - NEW S - Slurred speech or difficulty with word finding - NEW T - Time is BRAIN! Call 911 as soon as you recognize these symptoms Diet: Consume a regular diet rich in vegetables and lean protein such as chicken or fish. You should consume in a ratio of approximately 20% fats|40% carbohydrates|40%protein. Vegetables, sweet potatoes, brown rice or quinoa are examples of good carbohydrates. Chips, white bread, cookies and sweets/sugar are examples of bad carbohydrates. Limit your bad carbs, go wild with good carbs. "Life's Simple 7" Guidelines as per [place] [employer] These will help you reclaim your life after surgery and forger helper in your recovery, keeping in mind your restrictions. (1) Get Active. Physical activity can help people lose weight, control high blood pressure and cholesterol, feel emotionally better, and sleep better. (2) Control Cholesterol. Avoid a diet high in saturated fat, trans fat, & cholesterol. Limit whole milk & cream, ice cream, butter, egg yolks, processed meats (like sausage and hot dogs), and fatty meats. Choose healthy foods that are low in saturated fat, trans fat and cholesterol which include: Fruits and vegetables, fiber rich grain products (like whole grain pasta and brown rice), lean meat such as chicken, fish, nuts, seeds, and legumes. (3) Eat Better. Eat small portions. Shop at the grocery with a list and do not stray from it. Tips for a healthy diet include: Limit sodium intake to less than 1500mg daily, avoid prepackaged, processed, and fast foods, choose a diet rich in fruits, vegetables, and whole grain, high fiber foods, and limit saturated & cholesterol in your diet. (4) Manage Blood Pressure. If you have high blood pressure, you should have a cuff at home so that you can check your blood pressure regularly. Be sure you have a good cuff. An arm one is generally better than a wrist one. Bring the cuff to a doctor's appointment to validate that the measurements that your cuff are taking are accurate. Take your blood pressure twice daily when you are sitting down and relaxing. Record the numbers in a log and bring this log with you to your doctors' appointments. (5) Lose Weight if your BMI is above 25. A healthy BMI is between 19-25. To calculate Your BMI, you may use a Standard BMI Calculator on the NIH BMI website: <www.nhlbi.nih.gov/guidelines/obesity/BMI/bmicalc.htm>. Weigh oneself daily. If you are overweight, set a goal to lose weight. A pound a week loss if needed is a good target. (6) Reduce Blood Sugar. Limit foods and liquids with "added sugars." (Added sugars include sucrose, fructose, glucose, maltose, dextrose, high fructose corn syrup, corn syrup, concentrated fruit juice and honey). (7) Stop Smoking. If you smoke, quitting smoking is one of the best things that you can do for your health. Smoking increases your risk of heart attack, stroke, and peripheral vascular disease, which is a build-up of plaque in your arteries. Please discard all the cigarettes and lighters in your house. Have a plan for what you will do when you have the urge to smoke. Direct and second- hand smoke shortens your life as well as the lives of your family, friends and others around you. For your health and the health of those around you, please consider quitting! Proper Bending Body Mechanics: Maintain a wide stance with one foot slightly in front of the other. Keep your back straight. Bend utilizing the strength in your hips and knees. Do not bend at the waist. Maintain the lifted object at your waist-level close to your body. Avoid lifting weight that causes immediately pain or pain anywhere in the body afterwards. Smoking/Nicotine If there was ever one thing that you could do to increase your overall health, decrease your risk of cardiovascular problems by about 39% the second you make the choice, it is to STOP SMOKING. Your body's most instant gratification is the second you stop smoking. We have all heard the studies, read the articles but it is true, smoking is extremely bad for your overall health, and moreover it is detrimental to your bone health. Nicotine, IN ANY FORM, kills bone cells, prevents your body from healing fractures, and significantly prolongs healing after surgery. In spine surgery specifically, it increases your risk of not healing your bones to create a fusion and increases your risk of having a revision surgery due to this up to 60%. I know it is hard. I know it feels impossible. But there are ways. Take control of your life. We are here to help you through it. And when you are ready, ask us and we can direct you to help if you desire. Use the START Plan to Quit Smoking (please visit the Helpguide.org website listed below for more information): S = Set a quit date. Choose a date within the next 2 weeks, so you have enough time to prepare without losing your motivation to quit. If you mainly smoke at work, quit on the weekend, so you have a few days to adjust to the change. T = Tell family, friends, and co-workers that you plan to quit. Let your friends and family in on your plan to quit smoking and tell them you need their support and encouragement to stop. Look for a quit jaz who wants to stop smoking as well. You can help each other get through the rough times. A = Anticipate and plan for the challenges you'll face while quitting. Most people who begin smoking again do so within the first 3 months. You can help yourself make it through by preparing ahead for common challenges, such as nicotine withdrawal and cigarette cravings. R = Remove cigarettes and other tobacco products from your home, car, and work. Throw away all your cigarettes (no emergency pack!), lighters, ashtrays, and matches. Wash your clothes and freshen up anything that smells like smoke. Shampoo your car, clean your drapes and carpet, and steam your furniture. T = Talk to your doctor about getting help to quit. Your doctor can prescribe medication to help with withdrawal and suggest other alternatives. If you can't see a doctor, you can get many products over the counter at your local pharmacy or grocery store, including the nicotine patch, nicotine lozenges, and nicotine gum. Resources for Quitting Smoking: <https://www.[place].gov/documents/health system/Quit_Tobacco_Resources_for_patients_313 480_7.pdf> Supplementation: Take recommended dosages of Vitamin D and Calcium to help fortify your bones and help them to heal. See your health maintenance packet for dosages and recommended levels. DVT/VTE prophylaxis: You will be given compression stockings from the hospital. Wear these daily for the first two weeks after surgery. You may take them off at night. You may be prescribed a medication to help thin your blood. Take this as directed. If you are not prescribed this medication, early and frequent ambulation has been shown to be the best prophylaxis to deep vein thrombosis and sequelae related to this event. Discharge Disposition: HOME WITH HOME HEALTH SERVICES
[2024-02-24] MEDS: lisinopriL 10 MG TAB PO SCH (08:39)
[2024-02-24] MEDS: TAMSULOSIN 0.4 MG CAP.ER.24H PO SCH (08:39)
[2024-02-24] MEDS: SERTRALINE 25 MG TAB PO SCH (08:39)
[2024-02-24 10:28] VITALS: BP 148/88; PULSE 60; RESP 18; TEMP 98.3
[2024-02-24 10:46] LABS: Basophils # (A) 0.04 X 10*3/uL (0.00-0.10); Basophils % (A) 0.4 %; Eosinophils # (A) 0.04 X 10*3/uL (0.04-0.35); Eosinophils % (A) 0.4 %; HCT 45.6 % (39.6-50.0); Lymphocytes # (A) 1.06 X 10*3/uL (0.90-5.00); Lymphocytes % (A) 11.6 %; MCH 30.2 pg (27.0-32.0); MCHC 32.9 g/dL (32.0-37.0); MCV 91.8 FL (80.0-97.0); Mean Platelet Volume 10.6 FL (9.5-12.2); Monocytes % (A) 10.9 %; NRBC Per 100 WBC 0 X 10*3/uL (0.00-0.01); Neutrophils # (A) 6.97 X 10*3/uL (1.80-7.70); Neutrophils % (A) 76.4 %; Platelet Count 140 X 10*3/uL (140-440); RBC 4.97 X 10*6/uL (4.40-5.60); RDW 12.9 % (11.5-14.5); WBC 9.14 X 10*3/uL (4.50-10.00)
[2024-02-24 11:02] LABS: Blood Urea Nitrogen 13.1 mg/dL (9.0-27.0); Calcium 8.4 mg/dL (8.7-10.3); Carbon Dioxide 26.8 mmol/L (21.6-31.8); Chloride 102 mmol/L (96-109); Glucose 184 mg/dL (70-110); Potassium 4.1 mmol/L (3.5-5.5); Sodium 139 mmol/L (135-145)
[2024-02-24 11:39] LABS: Glucose,Whole Blood 204 mg/dL (70-110)
--- NOTE | 2024-02-24 13:07 | P.PN ---
Subjective Progress Note Date: 02/24/24 Hospital course: Patient is a very pleasant 58-year-old male with a past medical history of hypertension, hyperlipidemia, BPH, diabetes mellitus, cervical spondylosis with upper extremity radiculopathy, bilateral lower extremity neuropathy, and chronic back pain. He is currently admitted under orthospine surgery team status post cervical arthrodesis with insertion of biomechanical cage. We were consulted for medical management throughout hospitalization. Physical exam: Patient seen and fully evaluated at bedside this morning. He reports feeling well this morning only stating mild postoperative pain. FAWAD drain was removed. Hard cervical collar remains in place. Patient denies having any headache, lightheadedness, dizziness, chest pain, palpitations, or shortness of breath. He denies having any upper or lower extremity numbness/tingling/weakness. Patient reports he is urinating better this morning and further denies any episodes of residual. Patient states he had multiple episodes of dribbling and not fully emptying his bladder but states this morning able to urinate without difficulty. Vital signs reviewed and stable. General: Nontoxic, no distress and appears stated age. Derm: Skin warm and dry, normal coloration for ethnicity. Head: Atraumatic, normocephalic and symmetric. Hard c-collar and postsurgical dressing in place. Eyes: EOMs intact, no lid lag, and anicteric sclera Mouth: no lip lesions, mucus membranes moist. Patient has small sore on right lateral tongue stating he bit his tongue while under anesthesia. Cardiovascular: regular rate and rhythm with normal S1S2, no murmur, positive posterior tibial pulses bilaterally, and cap refill < 2 seconds. Lungs: Respirations even, regular, and unlabored on room air. Lungs CTA bilaterally, no rhonchi, no rales, no wheezing, and no accessory muscle usage. Abdominal: soft, nontender to palpation, no guarding, no appreciable organomegaly Ext: ROM intact. No gross muscle atrophy, no edema, no contractures Neuro: Speech clear, face symmetrical and CN II-XII grossly intact with no noted focal neuro deficits Psych: Alert and oriented to person, place, time, and situation. Appropriate and pleasant affect. Assessment and Plan of Care: Postoperative urinary retention. Resolved. Patient to continue Flomax 0.4 mg daily. Status post cervical arthrodesis with biomechanical cage placement -Management per primary admitting orthospine surgery team including DVT prophylaxis, wound/dressing/drain management, pain management, and PT/OT. -DVT prophylaxis currently with NIKOS tellez and Kathleen. Hypertension. Continue daily medication regimen with lisinopril 10 mg daily. Diabetes mellitus with hyperglycemia. Hemoglobin A1c 6.4%. Patient to resume glipizide 10 mg twice daily, Jardiance 25 mg daily, and alogliptin 25 mg daily. Data reviewed: -Postoperative labs reviewed. CBC unremarkable with WBC count of 9.14, hemoglobin of 15.0, and platelet count of 140. BMP also unremarkable with sodium 139, potassium 4.1, chloride 102, bicarb 26.8, anion gap 10.20, and renal function normal findings with BUN of 13.1, creatinine 1.0, and GFR of 87. Blood glucose slightly elevated this morning at 184. Hemoglobin A1c resulting at 6.4%. -Vital signs reviewed. Blood pressure 148/88, heart rate 60, respiratory rate 18, temp 98.3 F, and SpO2 of 99% on room air. Patient is cleared from medical perspective for discharge once cleared by primary admitting orthospine surgery team. Thank you for allowing us to participate in the care of this pleasant patient. Do not hesitate to contact us with questions. Someone can be reached from the [facility] hospitalist group all hours of the day at [phone] or via [employer] serve. Patient was seen independently by Nurse Practitioner. This document was prepared using [employer] dictation software. Please allow for errors in ese teacher while rare they do occur. Clarence Ferraro NP rendered care for this patient independently, reviewed the findings and plan as documented in the note above. I did not physically speak with or examine the patient on this date. Objective - Vital Signs Vital signs: Vital Signs Temp 98.2 F 02/24/24 02:00 Pulse 98 02/24/24 02:00 Resp 16 02/24/24 02:00 BP 130/72 02/24/24 02:00 Pulse Ox 98 02/24/24 02:00 FiO2 Intake & Output 02/23/24 02/24/24 02/24/24 18:59 06:59 18:59 Intake Total 1600 Output Total 35 Balance 1565 Weight 105 kg Intake: IV 1600 Output: Drainage 10 Right Neck 10 Estimated Blood Loss 25 Other: Voiding Method Toilet # Voids 2 1 - Labs CBC & Chem 7: 02/24/24 06:33 02/24/24 06:33 Labs: Abnormal Lab Results - Last 24 Hours (Table) 02/23/24 02/23/24 02/23/24 Range/Units 11:14 16:50 20:35 POC Glucose (mg/dL) 150 H 138 H 153 H (70-110) mg/dL 02/24/24 Range/Units 05:46 POC Glucose (mg/dL) 157 H (70-110) mg/dL
== END 2024-02-24 12:51 | disposition home health service (06) ==
LOC: OR 05:37 → 4SSUR 10:08 → OR 02-24 12:49
PROVIDERS: ATTEND Orthopaedic Surgery
DX: M50.121 Cervical disc disorder at C4-C5 level with radiculopathy (principal); M47.22 Other spondylosis with radiculopathy, cervical region; M48.02 Spinal stenosis, cervical region; M43.12 Spondylolisthesis, cervical region; M25.78 Osteophyte, vertebrae; I10 Essential (primary) hypertension; G89.29 Other chronic pain; E11.65 Type 2 diabetes mellitus with hyperglycemia; Z83.3 Family history of diabetes mellitus; Z90.89 Acquired absence of other organs; Z79.82 Long term (current) use of aspirin; Z79.84 Long term (current) use of oral hypoglycemic drugs; Z79.899 Other long term (current) drug therapy
CPT/HCPCS: 97161; 80048; 83735; 85025; 83036; 72040; 72125; 22551; 22552; 22853; 22845; 20936; C1713; J0690 ×2; J2405; J1170

== ENCOUNTER → 2024-06-22 | Outpatient (CLI) | payer OTHER ==
--- NOTE | 2024-07-14 13:42 | MR ---
Patient: Kal Goss J Ordering Physician: Unknown, Unknown ID: [id number] Phone, Pager: Phone: N/ A Pager: N/A : 1965 Age/Gender: 58Y, M Primary Location: N/A Procedure: MR lumbar wo con Stud y Date: 06/22/2024 3:09:00 PM EXAMINATION TYPE: MR lumbar spine wo con DATE OF EXAM: 07/07/2024 7:19 AM CLINICAL INDICATION: Low back pain COMPARISON: 09/09/2023 TECHNIQUE: Multi planar, multi sequence imaging was performed utilizing: T1-weighted, T2-weighted, a nd turbo inversion recovery imaging of the lumbar spine. IV Contrast: cc . (None if empty) FINDINGS: Alignment: The lumbar vertebral bodies have preserved heights and alignment. Cord: The conus medullaris and the distal spinal cord appear unremarkable with regards to their signa l intensity and morphology. Bones/Discs: Degeneration changes throughout the spine with osteophyte formation and facet joint arth ropathy. Intervertebral disc signal is maintained. No abnormal inversion recovery signal to suggest b sadie edema. T12-L1: No evidence of significant spinal canal stenosis or neural foraminal stenosis. L1-L2: No evidence of significant spinal canal stenosis or neural foraminal stenosis. L2-L3: Severe spinal canal stenosis secondary disc bulge and facet arthropathy. Facet joint arthropat hy with moderate bilateral neural foraminal stenosis. L3-L4: Disc bulge and facet joint arthropathy r esult in mild spinal canal and moderate to severe bilateral neural foraminal stenosis. L4-L5: Central/central left central disc protrusion which displaces slightly series 601 image 7. Ther e is moderate narrowing of the spinal canal. There is severe bilateral facet and neural foraminal zbigniew nosis. L5-S1: Central disc protrusion without significant spinal canal stenosis. There is facet joint arthro danielito with severe bilateral neural foraminal stenosis. No significant spinal canal or neural foraminal stenosis in the remainder of the visualized levels. Other findings: None. IMPRESSION: 1. Similar central/left central L4-5 disc protrusion which displaces some of the nerve roots. 2. L2-L3 severe spinal canal stenosis secondary disc bulge and facet arthropathy. Findings similar t o prior. 3. Moderate disc degeneration with associated osteoarthritic changes. No foraminal stenosis worse at L5-S1 with severe bilateral, L4-L5 with severe bilateral, moderate to severe bilateral L3-L4
== END | disposition home or self-care (01) ==
LOC: RADMRIMAIN 15:34
PROVIDERS: ATTEND Orthopaedic Surgery
DX: M51.16 Intervertebral disc disorders with radiculopathy, lumbar region (principal); M47.26 Other spondylosis with radiculopathy, lumbar region; M48.061 Spinal stenosis, lumbar region without neurogenic claudication
CPT/HCPCS: 72148

== ENCOUNTER → 2024-12-21 | Outpatient (CLI) | payer OTHER ==
[2024-12-21 09:32] VITALS: BP 157/91; PULSE 70; RESP 16
--- NOTE | 2024-12-21 15:52 | P.PAINPG ---
PQRS Measure Charge Sheet Comment: HISTORY OF PRESENT ILLNESS: A 59 yr old male as a referral from the [facility] presents today w severe and chronic LBP > 1 yr secondary to post disectomy/ laminectomy syndrome for evaluation. Pt states pain level is provoked at 9 /10 in intensity, constant, localized in the lumbar spine, predominantly axial, achy in character w occasional shooting pain towards the buttocks, hips, knees and LEs. Pain is provoked by walking/ standing/ activity for periods > 20 min. Pain is alleviated by PT x 6 wks which ended in Jan 2024, physician guided home exercises every other day since Jan 2024, heat, ice, medications (Neurontin, Aleve), topical BioFreeze, repositioning and rest . Oswestry axial pain score at 22 . PMH: OA, NIDDM II, HTN, CHUY, MDD/ Anxiety PSH: Cervical Fusion (2023), Lumbar discectomy/ laminectomy, Tonsillectomy, LESIs SH: Negative x3 FH: Mo- DM All: See list Meds: See list incl Flexeril, [place], Voltaren REVIEW OF ORGAN SYSTEMS: CONSTITUTIONAL: No fevers or chills. No recent weight loss. NEUROLOGICAL: + numbness and tingling along the distal extremities. No seizure disorders or headaches. MUSCULOSKELETAL: + pain PSYCHIATRIC: Denies current depression or suicidal thoughts. Physical Examinations : Constitutional : Cooperative , not in acute distress . Neurologic : Cranial nerve II to XII intact. No focal neurological deficits. Psychiatric : alert & oriented x 3. Matching mood & appropriate affect. Judgment & insight intact. Musculoskeletal : Cervical Spine Motor strength in the deltoid and bic eps: Normal right side. Normal Left side Motor strength biceps and the wrist extensors: Normal right side . Normal left side Motor strength in the triceps muscle: Normal right side. Normal left side Deep tendon reflexes: Normal at the biceps. Normal at Brachioradialis. Normal at triceps Vertebral body tenderness to deep palpation over Cervical facet loading test: positive bilaterally Spurling test: positive bilaterally Neck distraction test: positive bilaterally Alvaro sign: positive bilaterally Lumbar spine +Incisional Scar intact Motor strength lower extremities ,thigh and legs 5/5 Right side , 5/5 Left side Deep tendon reflexes : Normal Knee Jerk. Normal Ankle Jerk Vertebral body tenderness over L4 Marte Test positive Lumbar facet Loading Test: positive Right / positive Left Range of motion of the lumbar spine Flexion 30 degrees, extension 10 degrees Straight Leg Raise test: Left/ Right positive at <30 degrees Jorden test: positive right / positive left. Severe tenderness over the Sacroiliac joint on the Right / Left sides Gaenslen test: positive bilaterally Seated flexion test: positive bilaterally. Sacral spine : Severe tenderness over the Sacroiliac joint: right side / left side Range of motion: Flexion of the lumbar spine <60 degrees Range of motion: Extension of the lumbar spine <20 degrees Gaenslen's Test positive Jorden test: positive right side / left side Thigh Thrust Test Sacral Thrust Test Imaging: MRI non contrast lumbar spine from 07/07/24 reviewed Assessment/ Plan : post lumbar discectomy/ laminectomy syndrome Recommendation of YADIEL L4-L5 #1. Risks, benefits of procedure discussed and patient verbalized understanding. Admits to anti- coagulant use or medical history of diabetes. Protocol for discontinuation/ continuation of medications nitin procedure discussed. All questions answered. I have spent greater than 30 minutes on patient care today. Dr Arce was available by phone for the evaluation of this patient. The time was used to review the medical records including relevant urine studies and Prescription history (MAPs), review of the available imaging, evaluation and examination of the patient, coordination of care with the medical staff and if applicable referring physicians, as well as creation of the medical record PQRS Narrative: Smoking Status Never smoker Home Medications: Ambulatory Orders Sertraline HCl [Zoloft] 25 mg PO DAILY 04/15/17 Alogliptin Benzoate [Alogliptin] 25 mg PO DAILY 02/19/24 Aspirin 81 mg PO DAILY 02/19/24 Cyclobenzaprine [Flexeril] 10 mg PO BID PRN 02/19/24 Diclofenac Sodium Gel [Voltaren 1% Gel] 2 gm TOPICAL BID PRN 02/19/24 Empagliflozin [Jardiance] 25 mg PO DAILY 02/19/24 Gabapentin [Neurontin] 100 mg PO TID 02/19/24 Tamsulosin HCl [Flomax] 0.4 mg PO DAILY 02/19/24 glipiZIDE [Glucotrol] 10 mg PO AC-BID 02/19/24 lisinopriL [Zestril] 10 mg PO DAILY 02/19/24 Cyclobenzaprine [Flexeril] 10 mg PO BID PRN #40 tab 02/24/24 HYDROcodone/APAP 10-325MG [[place] 10-325] 1 tab PO Q4-6H PRN #42 tab 02/24/24 Sennosides/Docusate Sodium [Senna Plus 8.6-50 mg Softgel] 1 each PO DAILY PRN #20 capsule 02/24/24 cefaDROXiL [Duricef] 500 mg PO Q12HR #10 cap 02/24/24 Controlled Substance Measures - Controlled Substance Measures Is patient prescribed a controlled substance at discharge?: No
== END ==
LOC: PNWHC3 09:01
PROVIDERS: ATTEND Specialist
DX: M96.1 Postlaminectomy syndrome, not elsewhere classified (principal)
CPT/HCPCS: 99211

== ENCOUNTER 2025-01-25 12:48 | Day surgery (SDC) | payer OTHER ==
[2025-01-21 16:22] VITALS: BMI 30.5
[~2025-01-25 12:48] MED LIST changes: -GABAPENTIN 300 MG CAP PO PRN; +LACTATED RINGERS 1,000 ML IV SCH; -TRANEXAMIC 1,000 MG/100ML-NACL 1,000 MG in SALINE 1 100ML.BAG IVPB PRN
[2025-01-25 13:23] VITALS: RESP 16; TEMP 97.4
[2025-01-25 13:26] LABS: Glucose,Whole Blood 174 mg/dL (70-110)
[2025-01-25] MEDS ORDERED: IOPAMIDOL M300 15ML VIAL ONE (14:09)
[2025-01-25] MEDS ORDERED: methylPREDNISolone ACETATE 80 MG/ML 1 ML VIAL ONE (14:09)
[2025-01-25] MEDS ORDERED: ROPIVACAINE 5MG/ML 20ML VIAL ONE (14:09)
--- NOTE | 2025-01-25 14:28 | P.PCN ---
Description of Procedure: PREOPERATIVE DIAGNOSIS: 1- Lumbar Degenerative Disc Diseases 2-Lumbar spondylosis with Facet arthropathy without myelopathy. 3-lumbar spinal stenosis POSTOPERATIVE DIAGNOSIS: 1-lumbar degenerative disc disease. 2-lumbar spondylosis with facet arthropathy without myelopathy. 3-lumbar spinal stenosis. PROCEDURE Injection of radio contrast material into L3-4 interspace, interpretation of epidurogram, injection of steroid at L3-4 epidural space under fluoroscopic guidance. ANESTHESIA: Lidocaine 1% subcutaneously. In OR continuous pulse ox, EKG, blood pressure and verbal communication was maintained with the patient. EBL: Minimal PROCEDURE INDICATION: Before the procedure were discussed with the patient detailed procedure, alternatives, complications including infection, bleeding, nerve damage, paralysis all of which could be permanent. Patient understands and all questions were answered. PROCEDURE DESCRIPTION : After getting consent, patient in OR in prone position. Back was prepped with chlorhexidine and draped in sterile fashion. After injecting 10 mL of 1% lidocaine subcutaneously, a 20-gauge Tuohy needle was introduced at L3-4 interspace with loss of resistance technique using a syringe filled with air. Negative CSF, negative blood, negative paresthesia. Because of extensive past surgery decided to go at L3-4 level instead of L4-5 level. Needle position was confirmed with AP and lateral view of the fluoroscope. After repeat negative aspiration 2 mL of Omnipaque 200 water soluble contrast was injected. Contrast was noted in the epidural space. No contrast was noted into intrathecal or intravascular space. After repeat negative aspiration 6 mL solution was injected intermittently which consists of 5 mL of preservative-free normal saline mixed with 1 mL of 80 mg Depo-Medrol. Needle was withdrawn intact. Skin was cleansed and Band-Aids was applied. DISPOSITION / PLANS: The patient tolerated the procedure well. No complication. The patient was placed in a supine position and transferred to the recovery area in a stable condition for observation. There was no evidence of lower extremity motor or sensory deficit after the procedure. Patient was discharged from the recovery room after meeting discharge criteria. Home discharge instructions were given to the patient by the staff. The patient was reexamined prior to discharge. The patient will schedule a follow up in the clinic in 2-4 weeks. If patient do not get any improvement with today's YADIEL, in future may consider caudal epidural steroid injection.
--- NOTE | 2025-01-25 14:39 | FL ---
EXAMINATION TYPE: FL guided pain mgmt statistic DATE OF EXAM: 01/25/2025 CLINICAL INDICATION: Male, 59 years old with history of Lumbar Epid Inj; PHH, pain TECHNIQUE: Fluoroscopy. COMPARISON: None. FINDINGS: Fluoroscopic guidance was provided during pain relief procedure performed by Dr. Myers . A total of 20.1 seconds of fluoroscopic time was utilized during the procedure and 2 images are acqui red. Image acquired shows needle localization at the posterior L4 level with contrast injection. Deg eneration changes of the visualized joints. Total DAP: 0.49812 mGy m2. IMPRESSION: As Above. [facility], , 01/25/2025 2:37 PM
[2025-01-25 14:44] VITALS: BP 126/76; PULSE 73
== END 2025-01-25 15:27 | disposition home or self-care (01) ==
LOC: ORPAIN 12:48
PROVIDERS: ATTEND Pain Medicine Interventional Pain Medicine
DX: M48.061 Spinal stenosis, lumbar region without neurogenic claudication (principal); M47.816 Spondylosis without myelopathy or radiculopathy, lumbar region
CPT/HCPCS: 62323; Q9967; J2795; J1010

== ENCOUNTER → 2025-02-10 | Outpatient (CLI) | payer OTHER ==
[2025-02-10 10:28] VITALS: BP 137/87; PULSE 87; RESP 18; TEMP 97.5
--- NOTE | 2025-02-10 14:22 | P.PAINPG ---
Objective - Vital Signs Vital signs: Vital Signs Temp 97.5 F L 02/10/25 10:23 Pulse 87 02/10/25 10:23 Resp 18 02/10/25 10:23 BP 137/87 02/10/25 10:23 Pulse Ox 98 02/10/25 10:23 FiO2 Intake & Output 02/09/25 02/10/25 02/10/25 18:59 06:59 18:59 Weight 102.058 kg PQRS Measure Charge Sheet Mode of Arrival: Ambulatory Comment: HISTORY OF PRESENT ILLNESS: A 59 yr old male as a referral from the [facility] presents today w severe and chronic LBP > 1 yr secondary to post disectomy/ laminectomy syndrome for evaluation s/p YADIEL L3-L4 #1. Pt states he experienced 50$ pain relief x 2-3 wks s/p procedure. Pt states pain level is provoked at 2-3 /10 in intensity, constant, localized in the lumbar spine, predominantly axial, achy in character w occasional shooting pain towards the buttocks, hips, knees and LEs. Pain is provoked by walking/ standing/ activity for periods > 20 min. Pain is alleviated by PT x 6 wks which ended in Jan 2024, physician guided home exercises every other day since Jan 2024, heat, ice, medications (Neurontin, Aleve), topical BioFreeze, repositioning and rest . Oswestry axial pain score at 22 . Interventional procedures include Cervical Fusion (2023), Lumbar discectomy/ l aminectomy, YADIEL L3-L4 x1 Medications include Flexeril, [place], Voltaren REVIEW OF ORGAN SYSTEMS: CONSTITUTIONAL: No fevers or chills. No recent weight loss. NEUROLOGICAL: + numbness and tingling along the distal extremities. No seizure disorders or headaches. MUSCULOSKELETAL: + pain PSYCHIATRIC: Denies current depression or suicidal thoughts. Physical Examinations : Constitutional : Cooperative , not in acute distress . Neurologic : Cranial nerve II to XII intact. No focal neurological deficits. Psychiatric : alert & oriented x 3. Matching mood & appropriate affect. Judgment & insight intact. Musculoskeletal : Cervical Spine Motor strength in the deltoid and biceps: Normal right side. Normal Left side Motor strength biceps and the wrist extensors: Normal right side . Normal left side Motor strength in the triceps muscle: Normal right side. Normal left side Deep tendon reflexes: Normal at the biceps. Normal at Brachioradialis. Normal at triceps Vertebral body tenderness to deep palpation over Cervical facet loading test: positive bilaterally Spurling test: positive bilaterally Neck distraction test: positive bilaterally Alvaro sign: positive bilaterally Lumbar spine +Incisional Scar intact Motor strength lower extremities ,thigh and legs 5/5 Right side , 5/5 Left side Deep tendon reflexes : Normal Knee Jerk. Normal Ankle Jerk Vertebral body tenderness over L4 Marte Test positive Lumbar facet Loading Test: positive Right / positive Left Range of motion of the lumbar spine Flexion 30 degrees, extension 10 degrees Straight Leg Raise test: Left/ Right positive at <30 degrees Jorden test: positive right / positive left. Severe tenderness over the Sacroiliac joint on the Right / Left sides Gaenslen test: positive bilaterally Seated flexion test: positive bilaterally. Sacral spine : Severe tenderness over the Sacroiliac joint: right side / left side Range of motion: Flexion of the lumbar spine <60 degrees Range of motion: Extension of the lumbar spine <20 degrees Gaenslen's Test positive Jorden test: positive right side / left side Thigh Thrust Test Sacral Thrust Test Imaging: MRI non contrast lumbar spine from 07/07/24 reviewed Assessment/ Plan : post lumbar discectomy/ laminectomy syndrome Will manage residual pain and may RTC on an as needed basis All questions answered. I have spent greater than 30 minutes on patient care today. Dr Arce was available by phone for the evaluation of this patient. The time was used to review the medical records including relevant urine studies and Prescription history (MAPs), review of the available imaging, evaluation and examination of the patient, coordination of care with the medical staff and if applicable referring physicians, as well as creation of the medical record - Pain Location Lower Back Pharmacological Interventions: Epidural PQRS Narrative: Smoking Status Never smoker Blood Pressure 137/87 Pain Intensity [Lower Back] 2 Scale Used Numeric (1 - 10) Hx Alcohol Use (MH) No Home Medications: Ambulatory Orders Alogliptin Benzoate [Alogliptin] 25 mg PO DAILY 02/19/24 Aspirin 81 mg PO DAILY 02/19/24 Diclofenac Sodium Gel [Voltaren 1% Gel] 2 gm TOPICAL BID PRN 02/19/24 Empagliflozin [Jardiance] 25 mg PO DAILY 02/19/24 Gabapentin [Neurontin] 300 mg PO TID 02/19/24 Tamsulosin HCl [Flomax] 0.4 mg PO HS 02/19/24 glipiZIDE [Glucotrol] 10 mg PO AC-BID 02/19/24 lisinopriL [Zestril] 10 mg PO DAILY 02/19/24 HYDROcodone/APAP 10-325MG [[place] 10-325] 1 tab PO Q4-6H PRN #42 tab 02/24/24 Naproxen Sodium [Aleve] 220 mg PO DAILY PRN 01/21/25 DULoxetine HCL [Cymbalta] 30 mg PO BID 01/25/25 Controlled Substance Measures - Controlled Substance Measures Is patient prescribed a controlled substance at discharge?: No
== END ==
LOC: PNWHC3 09:35
PROVIDERS: ATTEND Specialist
DX: M96.1 Postlaminectomy syndrome, not elsewhere classified (principal); M54.50 Low back pain, unspecified
CPT/HCPCS: 99211

== ENCOUNTER → 2025-04-07 | Outpatient (CLI) | payer OTHER ==
[2025-04-07 14:00] VITALS: BP 137/84; PULSE 65; RESP 16; TEMP 96.8
--- NOTE | 2025-04-07 16:57 | P.PAINPG ---
Objective - Vital Signs Vital signs: Vital Signs Temp 96.8 F L 04/07/25 13:52 Pulse 65 04/07/25 13:52 Resp 16 04/07/25 13:52 BP 137/84 04/07/25 13:52 Pulse Ox 96 04/07/25 13:52 FiO2 Intake & Output 04/06/25 04/07/25 04/07/25 18:59 06:59 18:59 Weight 102.058 kg PQRS Measure Charge Sheet Mode of Arrival: Ambulatory Comment: HISTORY OF PRESENT ILLNESS: A 59 yr old male presents today w severe and chronic LBP > 1 yr secondary to post disectomy/ laminectomy syndrome for evaluation. Pt states pain level is provoked at 5-6 /10 in intensity, constant, localized in the lumbar spine, predominantly axial, sharp in character w occasional shooting pain towards the thighs and knees. Pain is provoked by walking/ standing/ activity for periods > 20 min. Pain is alleviated by PT x 6 wks which ended in Jan 2024, physician guided home exercises every other day since Jan 2024, heat, ice, medications, topical, repositioning and rest . Interventional procedures include Cervical Fusion (2023), Lumbar discectomy/ laminectomy, YADIEL L3-L4 x1 Medications include Flexeril, [place], Neurontin, Aleve, Voltaren, BioFreeze REVIEW OF ORGAN SYSTEMS: CONSTITUTIONAL: No fevers or chills. No recent weight loss. NEUROLOGICAL: + numbness and tingling along the distal extremities. No seizure disorders or headaches. MUSCULOSKELETAL: + pain PSYCHIATRIC: Denies current depression or suicidal thoughts. Physical Examinations : Constitutional : Cooperative , not in acute distress . Neurologic : Cranial nerve II to XII intact. No focal neurological deficits. Psychiatric : alert & oriented x 3. Matching mood & appropriate affect. Judgment & insight intact. Musculoskeletal : Cervical Spine Motor strength in the deltoid and biceps: Normal right side. Normal Left side Motor strength biceps and the wrist extensors: Normal right side . Normal left side Motor strength in the triceps muscle: Normal right side. Normal left side Deep tendon reflexes: Normal at the biceps. Normal at Brachioradialis. Normal at triceps Vertebral body tenderness to deep palpation over Cervical facet loading test: positive bilaterally Spurling test: positive bilaterally Neck distraction test: positive bilaterally Alvaro sign: positive bilaterally Lumbar spine +Incisional Scar intact Motor strength lower extremities ,thigh and legs 5/5 Right side , 5/5 Left side Deep tendon reflexes : Normal Knee Jerk. Normal Ankle Jerk Vertebral body tenderness over L4 Marte Test positive BL L3-L4 Lumbar facet Loading Test: positive Right / positive Left Range of motion of the lumbar spine Flexion 30 degrees, extension 10 degrees Straight Leg Raise test: Left/ Right positive at <30 degrees Jorden test: positive right / positive left. Severe tenderness over the Sacroiliac joint on the Right / Left sides Gaenslen test: positive bilaterally Seated flexion test: positive bilaterally. Sacral spine : Severe tenderness over the Sacroiliac joint: right side / left side Range of motion: Flexion of the lumbar spine <60 degrees Range of motion: Extension of the lumbar spine <20 degrees Gaenslen's Test positive Jorden test: positive right side / left side Thigh Thrust Test Sacral Thrust Test Imaging: MRI non contrast lumbar spine from 07/07/24 reviewed Assessment/ Plan : post lumbar discectomy/ laminectomy syndrome Recommendation of YADIEL L3-L4 #2. Risks, benefits of procedure discussed and patient verbalized understanding. Protocol for discontinuation/continuation of medication surrounding procedure discussed. All questions answered. I have spent greater than 30 minutes on patient care today. Dr Arce was available by phone for the evaluation of this patient. The time was used to review the medical records including relevant urine studies and Prescription history (MAPs), review of the available imaging, evaluation and examination of the patient, coordination of care with the medical staff and if applicable referring physicians, as well as creation of the medical record - Pain Location Bilateral Lower Back Non-Pharmacological Interventions: Exercise, Home Exercise, Inactivity, Physical Therapy, Position/Reposition, Sitting, Stretching Pharmacological Interventions: Epidural, PRN Medication, Scheduled Medication, Topical Medication PQRS Narrative: Smoking Status Never smoker Blood Pressure 137/84 Pain Intensity [Bilateral 5 Lower Back] Scale Used Numeric (1 - 10) Hx Alcohol Use (MH) No Home Medications: Ambulatory Orders Alogliptin Benzoate [Alogliptin] 25 mg PO DAILY 02/19/24 Aspirin 81 mg PO DAILY 02/19/24 Diclofenac Sodium Gel [Voltaren 1% Gel] 2 gm TOPICAL BID PRN 02/19/24 Empagliflozin [Jardiance] 25 mg PO DAILY 02/19/24 Gabapentin [Neurontin] 300 mg PO TID 02/19/24 Tamsulosin HCl [Flomax] 0.4 mg PO HS 02/19/24 glipiZIDE [Glucotrol] 10 mg PO AC-BID 02/19/24 lisinopriL [Zestril] 10 mg PO DAILY 02/19/24 HYDROcodone/APAP 10-325MG [[place] 10-325] 1 tab PO Q4-6H PRN #42 tab 02/24/24 Naproxen Sodium [Aleve] 220 mg PO DAILY PRN 01/21/25 DULoxetine HCL [Cymbalta] 30 mg PO BID 01/25/25 Controlled Substance Measures - Controlled Substance Measures Is patient prescribed a controlled substance at discharge?: No
== END ==
LOC: PNWHC3 13:42
PROVIDERS: ATTEND Specialist
DX: M96.1 Postlaminectomy syndrome, not elsewhere classified (principal); Z98.890 Other specified postprocedural states
CPT/HCPCS: 99211

== ENCOUNTER 2025-04-28 11:47 | Day surgery (SDC) | payer OTHER ==
[2025-04-28 12:18] LABS: Glucose,Whole Blood 119 mg/dL (70-110)
[2025-04-28 12:19] VITALS: RESP 16; TEMP 97.5
[2025-04-28] MEDS ORDERED: methylPREDNISolone ACETATE 80 MG/ML 1 ML VIAL ONE (12:57)
[2025-04-28] MEDS ORDERED: IOPAMIDOL M300 15ML VIAL ONE (12:57)
--- NOTE | 2025-04-28 13:29 | P.PCN ---
Description of Procedure: PREOPERATIVE DIAGNOSIS: 1- Lumbar Degenerative Disc Diseases 2-Lumbar spondylosis with Facet arthropathy without myelopathy. 3-lumbar spinal stenosis POSTOPERATIVE DIAGNOSIS: 1-lumbar degenerative disc disease. 2-lumbar spondylosis with facet arthropathy without myelopathy. 3-lumbar spinal stenosis. PROCEDURE Injection of radio contrast material into L3-4 interspace, interpretation of epidurogram, injection of steroid at L3-4 epidural space under fluoroscopic guidance. ANESTHESIA: Lidocaine 1% subcutaneously. In OR continuous pulse ox, EKG, blood pressure and verbal communication was maintained with the patient. EBL: Minimal PROCEDURE INDICATION: Before the procedure were discussed with the patient detailed procedure, alternatives, complications including infection, bleeding, nerve damage, paralysis all of which could be permanent. Patient understands and all questions were answered. PROCEDURE DESCRIPTION : After getting consent, patient in OR in prone position. Back was prepped with chlorhexidine and draped in sterile fashion. After injecting 10 mL of 1% lidocaine subcutaneously, a 18-gauge Tuohy needle was introduced at L3-4 interspace with loss of resistance technique using a syringe filled with air. Negative CSF, negative blood, negative paresthesia. Needle position was confirmed with AP and lateral view of the fluoroscope. After repeat negative aspiration 2 mL of Omnipaque 200 water soluble contrast was injected. Contrast was noted in the epidural space. No contrast was noted into intrathecal or intravascular space. After repeat negative aspiration 6 mL solution was injected intermittently which consists of 5 mL of preservative-free normal saline mixed with 1 mL of 80 mg Depo-Medrol. Needle was withdrawn intact. Skin was cleansed and Band-Aids was applied. DISPOSITION / PLANS: The patient tolerated the procedure well. No complication. The patient was placed in a supine position and transferred to the recovery area in a stable condition for observation. There was no evidence of lower extremity motor or sensory deficit after the procedure. Patient was discharged from the recovery room after meeting discharge criteria. Home discharge instructions were given to the patient by the staff. The patient was reexamined prior to discharge. The patient will schedule a follow up in the clinic in 2-4 weeks.
[2025-04-28 13:42] VITALS: BP 125/83; PULSE 75
--- NOTE | 2025-04-28 16:57 | FL ---
Fluoroscopy INDICATION: Pain FINDINGS: Fluoroscopy time: 33.6 seconds. Total dose area product (DAP) in uGy*m?, mGy*cm? (or similar): 0.02774 Images obtained: 3. Images document the procedure. IMPRESSION: 1. Documentation of fluoroscopy. [facility], , 04/28/2025 4:55 PM
== END 2025-04-28 13:43 | disposition home or self-care (01) ==
LOC: ORPAIN 11:47
PROVIDERS: ATTEND Pain Medicine Interventional Pain Medicine
DX: M51.369 Other intervertebral disc degeneration, lumbar region without mention of lumbar back pain or lower extremity pain (principal); M47.816 Spondylosis without myelopathy or radiculopathy, lumbar region; M48.061 Spinal stenosis, lumbar region without neurogenic claudication
CPT/HCPCS: 62323; Q9967; J1010